=== PATIENT | female | born 1950 | race Caucasian/White ===

== ENCOUNTER → 2020-08-18 12:24 | Outpatient (BNVA) | payer MEDICARE, OTHER, SELFPAY | PROVIDERS: Family Provider Internal Medicine; PCP Nurse Practitioner; Visit Provider Nurse Practitioner | DX: Z01.812 Encounter for preprocedural laboratory examination (principal); Z20.822 Contact with and (suspected) exposure to COVID-19 | CPT/HCPCS: 87635 ==

== ENCOUNTER 2020-08-24 10:49 | Outpatient (CLI) | payer MEDICARE, OTHER, SELFPAY ==
--- NOTE | 2020-08-24 11:21 | PFTS_ITS ---
Date of Study:08/24/20 Date of Dictation: 08/24/2020 MECHANICS: Post bronchodilator forced vital capacity (FVC) is normal. Postbronchodilator forced expiratory volume in one second (FEV1) is normal. FEV1/FVC is reduced. There is significant response to bronchodilators. FLOW VOLUME LOOP: Sloping of expiratory limb suggestive of airway obstruction . LUNG VOLUMES: Total lung capacity (TLC) is increased. Residual volume (RV) is increased suggestive of mild air trapping 125%. DIFFUSING CAPACITY FOR CARBON MONOXIDE: normal. . INTERPRETATION: The pulmonary function tests are consistent with mild obstructive ventilatory defect with mild air trapping on lung volumes. There is significant response to bronchodilators. Gas transfer is normal. Correlate clinically. MTDD
== END 2020-08-24 10:50 | disposition home or self-care (01) ==
LOC: RT 10:55
PROVIDERS: PCP Nurse Practitioner; Visit Provider Nurse Practitioner
DX: J45.909 Unspecified asthma, uncomplicated (principal)
CPT/HCPCS: 94060; 94726; 94729; J7611

== ENCOUNTER 2021-03-10 15:26 | Emergency (ER) | payer MEDICARE, OTHER, SELFPAY ==
[2021-03-10 15:46] VITALS: BP 223/94; PULSE 94; RESP 18; TEMP 36.8; O2SAT 97; BMI 25.4
--- NOTE | 2021-03-10 16:36 | XRR_ITS ---
PROCEDURE INFORMATION: Exam: XR Chest Exam date and time: 03/10/2021 4:36 PM Age: 70 years old Clinical indication: Other: Dizziness; Additional info: HTN, dizziness TECHNIQUE: Imaging protocol: XR of the chest. Views: 1 view. COMPARISON: No relevant prior studies available. FINDINGS: Lungs: Unremarkable. No consolidation. Pleural spaces: Unremarkable. No pleural effusion. No pneumothorax. Heart/Mediastinum: Unremarkable. No cardiomegaly. Bones/joints: Unremarkable. XR/XR chest 1V portable [id number] IMPRESSION: No acute findings.
--- NOTE | 2021-03-10 18:10 | ECG_ITS ---
[facility] Test Date: 2021-03-10 Pat Name: Melina Briggs Department: Room: Gender: Female Recovery Coordinator: : 1950 Requested By: Jose Manuel Pitts Order Number: [id number] Casey MD: Jennifer Zabala M.D. Measurements Intervals [place] Rate: 94 P: 41 [place]: 112 QRS: 24 QRSD: 121 T: 56 QT: 346 QTc: 433 Interpretive Statements SINUS RHYTHM WITH SHORT [place] INTERVAL MODERATE INTRAVENTRICULAR CONDUCTION DELAY [110+ ms QRS DURATION] No previous ECG available for comparison Electronically Signed On 03-11-2021 20:05:23 POOL NURSE by Jennifer Zabala M.D. [id number] f
[2021-03-10 18:46] VITALS: BP 197/97; PULSE 109; RESP 22; O2SAT 97
[2021-03-10] MEDS: labetalol 5 mg/mL SDV 20mL 20 MG IVP (18:47)
[2021-03-10] MEDS: enalaprilat 1.25 mg/mL Inj IVP (18:50)
[2021-03-10 19:00] LABS: Basophils % 0.5 %; Eosinophils # 0.1 10^3/uL (0.0-0.8); Eosinophils % 1.1 %; Hematocrit 42.7 % (37.0-47.0); Hemoglobin 14.7 g/dL (11.5-15.3); Lymphocytes # 1.6 10^3/uL (0.8-4.8); Lymphocytes % 26.9 %; Mean Corpuscular HGB Conc 34.4 g/dL (30.0-36.0); Mean Corpuscular Hemoglobin 29.3 pg (28.0-34.0); Mean Corpuscular Volume 85.2 fl (81-99); Mean Platelet Volume 10.8 fL (7.4-10.4); Monocytes # 0.5 10^3/uL (0.2-0.9); Monocytes % 7.9 %; Neutrophils # 3.86 10^3/uL (1.8-7.7); Neutrophils % 63.3 %; Nucleated Red Blood Cells % 0 %; Platelet Count 237 10^3/cmm (130-400); Red Blood Count 5.01 10^6/uL (4.1-5.3); Red Cell Distribution Width 13.1 % (12.1-15.1); White Blood Count 6.1 10^3/uL (4.0-10.0)
[2021-03-10 19:05] LABS: Add Urine Microscopic? NO; Charge for UA Resulting for Rev
[2021-03-10 19:07] LABS: Bilirubin Urine Neg (Negative); Blood Urine Neg (Negative); Glucose Urine UA 2+ (Normal); Ketones Urine Negative (Negative); Leukocyte Esterase Urine Negative (Negative); Nitrate Urine Negative (Negative); Protein Urine Neg (Negative); Urine Appearance Clear (CLEAR); Urine Color Yellow (Yellow); Urobilinogen Urine Norm (Negative); pH Urine 7 (5-7)
--- NOTE | 2021-03-10 19:08 | CTR_ITS ---
PROCEDURE INFORMATION: Exam: CT Head Without Contrast Exam date and time: 03/10/2021 7:08 PM Age: 70 years old Clinical indication: Dizziness; Additional info: Dizzy TECHNIQUE: Imaging protocol: Computed tomography of the head without contrast. Radiation optimization: All CT scans at this facility use at least one of these dose optimization techniques: automated exposure control; mA and/or kV adjustment per patient size (includes targeted exams where dose is matched to clinical indication); or iterative reconstruction. COMPARISON: No relevant prior studies available. RADIATION DOSE METRICS: Total DLP (mGy-cm): 825.45 FINDINGS: Brain: Normal. No hemorrhage. Unremarkable white matter. No mass effect. Cerebral ventricles: No ventriculomegaly. Paranasal sinuses: Visualized sinuses are unremarkable. No fluid levels. Mastoid air cells: Visualized mastoid air cells are well aerated. Bones/joints: Unremarkable. No acute fracture. Soft tissues: Unremarkable. CT/CT head wo con* [id number] IMPRESSION: No acute intracranial abnormality.
[2021-03-10 19:13] LABS: Troponin(5th) Baseline 9 ng/L (0-10)
--- NOTE | 2021-03-10 19:14 | ED_ITS ---
HPI - Dizziness General: Chief Complaint: Dizziness Stated Complaint: HIGH BP HIGH BS Time Seen by Provider: 03/10/21 18:08 History of Present Illness: HPI Narrative: 70-year-old female with a history of asthma, hypertension, and type 2 diabetes. She became quite dizzy around 230 this afternoon at home. She was decorating her house for [facility]. She checked her pressure, and it was significantly elevated on her home monitor. She came to urgent care where it was very significantly elevated. She was told to come to the emergency room. She denies any chest pain. She denies headache. She denies significant vision changes. She states her dizziness have improved to some degree, but is still present. MD elicited complaint: dizziness and lightheadedness Onset (ago): hour(s) Timing: sudden onset Severity: moderate Description: lightheadedness and near-syncope History of similar symptoms: Yes Exacerbating factors: movement/ambulation Relieving factors: remaining still Associated symptoms: Reports cough (Mild, nonproductive), nausea and nasal congestion; Denies chest pain, chills, fevers/chills, headache(s), malaise or short of breath Associated neuro symptoms: Deny confusion, difficulty speaking, dysphagia, extremity weakness, facial numbness, facial weakness, numbness in extremities or visual changes Review of Systems Const: Denies: chills or malaise ENMT: Reports: nasal congestion Card: Denies: chest pain GI: Reports: nausea; Denies: dysphagia Neuro: Denies: headache(s), numbness in extremities or confusion [facility] ED PFSH: Medical History Diabetes Hypothyroid Surgical History History of hysterectomy Social History History of recent travel: No Physical Exam Const: COMMON NORMALS: no acute distress, patient oriented x3 and alert HENMT: COMMON NORMALS: normocephalic and atraumatic HEAD & SCALP: normocephalic and atraumatic Eye: COMMON NORMALS: Equal, round and reactive pupils present and EOMs intact bilaterally VISUAL KLEIN: No peripheral vision loss PUPIL: Yes Equal, round and reactive pupils present Chest: COMMONS NORMALS: normal inspection of the chest Resp: COMMON NORMALS: normal respiratory effort, No use of accessory muscles and clear to auscultation bilaterally AUSCULTATION: clear to auscultation bilaterally Cardio: COMMON NORMALS: regular rate and regular rhythm RATE: regular rate RHYTHM: regular rhythm GI: COMMON NORMALS: Normal to inspection, nondistended, normoactive bowel sounds present Neuro: COMMON NORMALS: patient oriented x3 SENSORIUM/ORIENTATION: Yes alert CRANIAL NERVES: Yes CN normal except as noted COORDINATION/BALANCE: [id number] test normal SPEECH: speech normal SENSORY EXAM: Yes extremities (Normal) MOTOR EXAM: Pronator motor function not present COORDINATION: [id number] test normal Course Vital Signs: Vital signs: Vital Signs Temperature 98.2 F 03/10/21 20:35 Pulse Rate 70 03/10/21 20:35 Respiratory Rate 16 03/10/21 20:35 Blood Pressure 140/86 03/10/21 20:35 Pulse Oximetry 98 03/10/21 20:35 MDM - Dizziness MDM Narrative: Medical decision making narrative: NIH stroke scale 0. CT of the head is negative. Her symptoms are resolved after improvement in her blood pressure. Her CBC and BMP were normal. Her liver enzymes are minimally elevated. She has no abdominal pain or discomfort, no history of hepatitis. She would like to go home. She took hydrochlorothiazide for hypertension before. We will give her a dose tonight, and write her prescription. She knows to return for any return of her symptoms at all. Lab Data: Labs: Lab Results 03/10/21 03/10/21 03/10/21 15:40 18:37 18:37 WBC 6.1 10^3/uL 10^3/ uL (4.0-10.0) RBC 5.01 10^6/uL 10^6 /uL (4.1-5.3) Hgb 14.7 g/dL g/dL (11.5-15.3) Hct 42.7 % % (37.0-47.0) MCV 85.2 fl fl (81-99) MCH 29.3 pg pg (28.0-34.0) MCHC 34.4 g/dL g/dL (30.0-36.0) RDW 13.1 % % (12.1-15.1) Plt Count 237 10^3/cmm 10^3 /cmm (130-400) MPV 10.8 fL H fL (7.4-10.4) Neut % (Auto) 63.3 % % Lymph % (Auto) 26.9 % % [place] % (Auto) 7.9 % % Eos % (Auto) 1.1 % % Baso % (Auto) 0.5 % % Neut # (Auto) 3.86 10^3/uL 10^3 /uL (1.8-7.7) Lymph # (Auto) 1.6 10^3/uL 10^3/ uL (0.8-4.8) [place] # (Auto) 0.5 10^3/uL 10^3/ uL (0.2-0.9) Eos # (Auto) 0.1 10^3/uL 10^3/ uL (0.0-0.8) Baso # (Auto) 0.0 10^3/uL 10^3/ uL (0.0-0.1) Nucleated RBC % (a uto) 0 % % Nucleated RBCs # 0.0 /100WBC /100W BC Sodium 136 mmol/L mmol/L (136-145) Potassium 4.3 mmol/L mmol/L (3.5-5.1) Chloride 98 mmol/L mmol/L (98-107) Carbon Dioxide 24 mmol/L mmol/L (22-29) Anion Gap 18.3 (5-19) BUN 10 mg/dL mg/dL (8-23) Creatinine 0.5 mg/dL mg/dL (0.5-0.9) GFR Calculation Not Reportable Glucose 152 mg/dL H mg/dL (65-115) Calculated Osmolal ity 284 mOsm/kg L mOs m/kg (285-295) Calcium 9.6 mg/dL mg/dL (8.5-10.5) Phosphorus 2.9 mg/dL mg/dL (2.5-4.5) Magnesium 2.0 mg/dL mg/dL (1.7-2.3) Total Bilirubin 0.4 mg/dL mg/dL (0.15-1.2) AST 61 U/L H U/L (0-32) ALT 109 U/L H U/L (0-33) Alkaline Phosphata se 110 IU/L H IU/L (35-105) Troponin T Baselin e Total Protein 7.2 g/dL g/dL (6.6-8.7) Albumin 4.9 g/dL g/dL (3.5-5.2) Globulin 2.3 g/dL g/dL (1.3-4.6) TSH 2.18 uIU/mL uIU/m L (0.27-4.20) Urine Color Yellow (Yellow) Urine Appearance Clear (CLEAR) Urine pH 7 (5-7) Ur Specific Gravit y 1.000 L (1.005-1.030) Urine Protein Neg (Negative) Urine Glucose (UA) 2+ H (Normal) Urine Ketones Negative (Negative) Urine Blood Neg (Negative) Urine Nitrate Negative (Negative) Urine Bilirubin Neg (Negative) Urine Urobilinogen Norm mg/dL mg/dL (Negative) Ur Leukocyte Renae ase Negative (Negative) 03/10/21 18:37 WBC RBC Hgb Hct MCV MCH MCHC RDW Plt Count MPV Neut % (Auto) Lymph % (Auto) [place] % (Auto) Eos % (Auto) Baso % (Auto) Neut # (Auto) Lymph # (Auto) [place] # (Auto) Eos # (Auto) Baso # (Auto) Nucleated RBC % (a uto) Nucleated RBCs # Sodium Potassium Chloride Carbon Dioxide Anion Gap BUN Creatinine GFR Calculation Glucose Calculated Osmolal ity Calcium Phosphorus Magnesium Total Bilirubin AST ALT Alkaline Phosphata se Troponin T Baselin e 9 ng/L ng/L (0-10) Total Protein Albumin Globulin TSH Urine Color Urine Appearance Urine pH Ur Specific Gravit y Urine Protein Urine Glucose (UA) Urine Ketones Urine Blood Urine Nitrate Urine Bilirubin Urine Urobilinogen Ur Leukocyte Renae ase Discharge Plan Discharge Patient Disposition: Home Clinical Impression: Hypertensive urgency Condition: Stable Prescriptions: New hydrochlorothiazide 25 mg tablet 25 mg PO DAILY Qty: 30 RF: 0 No Action Humulin N NPH Insulin KwikPen 100 unit/mL (3 mL) insulin pen 25 unit SUBCUT QAM RF: 0 metformin 500 mg tablet 500 mg PO BID RF: 0 levocetirizine [Allergy Relief (levocetirizin)] 5 mg tablet 5 mg PO DAILY RF: 0 Algal [place]-3 DHA 200 mg capsule PO RF: 0 levothyroxine 25 mcg tablet 25 mcg PO DAILY RF: 0 fluticasone propionate [Allergy Relief (fluticasone)] 50 mcg/actuation spray,suspension 1 spray intranasal DAILY PRNRF: 0 albuterol sulfate 1.25 mg/3 mL solution for nebulization 1.25 mg inhalation QID PRNRF: 0 meloxicam 15 mg tablet 15 mg PO DAILY RF: 0 Discharge Orders: Discharge ED (Routine); Ordered 03/10/21 Ordered By: Jose Manuel Jefferson Referrals: Shari Mane, ANALYTICAL ENGINEER [Primary Care Provider] - 1-3 days Patient Instructions: Hypertension (ED) Activity Restrictions/Additional Instructions: Return for return of dizziness, chest discomfort, mental status changes, weakness, syncope or passing out, any other concerning symptoms. Take your hydrochlorothiazide daily. Wait 24 hours to check your blood pressure, then check twice daily and report numbers to your physician. Coding Level of Care Code ED Ticket Sales Supervisor for [place] Fwd Exam Comprehensive
[2021-03-10 19:23] LABS: Alanine Aminotransferase 109 U/L (0-33); Albumin Level 4.9 g/dL (3.5-5.2); Alkaline Phosphatase 110 IU/L (35-105); Blood Urea Nitrogen 10 mg/dL (8-23); Calcium 9.6 mg/dL (8.5-10.5); Carbon Dioxide 24 mmol/L (22-29); Chloride 98 mmol/L (98-107); Globulin 2.3 g/dL (1.3-4.6); Glucose 152 mg/dL (65-115); Osmolality Calculated 284 mOsm/kg (285-295); Phosphorus 2.9 mg/dL (2.5-4.5); Sodium 136 mmol/L (136-145); Thyroid Stimulating Hormone 2.18 uIU/mL (0.27-4.20); Total Bilirubin 0.4 mg/dL (0.15-1.2); Total Protein 7.2 g/dL (6.6-8.7)
[2021-03-10 19:24] LABS: Anion Gap 18.3 (5-19); Aspartate Amino Transferase 61 U/L (0-32); Potassium 4.3 mmol/L (3.5-5.1)
[2021-03-10 19:30] VITALS: BP 148/102; PULSE 74; RESP 16; O2SAT 98
--- NOTE | 2021-03-10 19:36 | PC.NURSE ---
REPORT GIVEN TO SANCHEZ CARDENAS ASSUMED CARE.
--- NOTE | 2021-03-10 20:10 | ECG_ITS ---
[facility] Test Date: 2021-03-10 Pat Name: Melina Briggs Department: Room: Gender: Female Choir Singer: : 1950 Requested By: Jose Manuel Pitts Order Number: [id number] Casey MD: Jennifer Zabala M.D. Measurements Intervals [place] Rate: 69 P: 58 [place]: 138 QRS: 68 QRSD: 107 T: 83 QT: 390 QTc: 420 Interpretive Statements SINUS RHYTHM Compared to ECG 03/10/2021 18:38:58 Short [place] interval no longer present Intraventricular conduction delay no longer present Electronically Signed On 03-11-2021 20:16:28 SALES ACCOUNT REPRESENTATIVE by Jennifer Zabala M.D. [email or web address] hospitals conneaut medical [email or web address] Pharma/store/OM/[id number]
[2021-03-10] MEDS: hydroCHLOROthiazide 25 mg Tablet PO (20:28)
[2021-03-10 20:33] VITALS: BP 140/86; PULSE 74; RESP 16; TEMP 36.8; O2SAT 98
[2021-03-10 20:35] VITALS: BP 140/86; PULSE 70; RESP 16; TEMP 36.8; O2SAT 98
[2021-03-12 21:14] LABS: Glucose Point of Care 152 mg/dL (70-110)
== END 2021-03-10 20:38 | disposition home or self-care (01) ==
PROVIDERS: Nurse Practitioner Family; Emergency Provider Emergency Medicine; PCP Nurse Practitioner
DX: I16.0 Hypertensive urgency (principal); Z79.84 Long term (current) use of oral hypoglycemic drugs; Z79.4 Long term (current) use of insulin; E11.9 Type 2 diabetes mellitus without complications
CPT/HCPCS: 36416; 70450; 71045; 80053; 81003; 82962; 83735; 84100; 84443; 84484; 85025; 93005; 96374; 96375; 99284; J3490

== ENCOUNTER 2021-10-26 12:33 | Outpatient (CLI) | payer MEDICARE, OTHER, SELFPAY ==
--- NOTE | 2021-10-26 12:57 | XR_ITS ---
WS: [id number] Exam: XR chest 2V* [id number] Date/Time of Exam: 10/26/2021 1:09 PM Reason For Exam: CANDIDIASIS OF VULVA VAGINA Comparison 03/10/2021. The lungs are clear and fully expanded. Normal cardiomediastinal silhouette. No pleural effusions. [place] structures are intact. Mild DJD of the T-spine. XR/XR chest 2V* [id number] IMPRESSION: 1. No acute pulmonary process. No change.
== END 2021-10-26 12:34 | disposition home or self-care (01) ==
PROVIDERS: PCP Nurse Practitioner; Visit Provider Nurse Practitioner Family
DX: B37.3 Candidiasis of vulva and vagina (principal)
CPT/HCPCS: 71046

== ENCOUNTER 2022-07-15 09:13 | Outpatient (CLI) | payer MEDICARE, OTHER, SELFPAY ==
--- NOTE | 2022-07-15 09:24 | US_ITS ---
WS: [id number] RIGHT UPPER QUADRANT ULTRASOUND HISTORY: ABNORMAL LEVELS OF OTHER SERUM ENZYMES COMPARISON: None available. Liver: 13.7 cm in length. Normal liver with mild hepatic steatosis. Normal size liver with no bile du ct dilatation. Portal Vein: Normal hepatopetal flow with monophasic waveform. Gallbladder: Normally distended gallbladder with no stones or wall thickening. CBD: 0.6 cm Pancreas: Tail is obscured by bowel gas. The remaining pancreas is negative. Right kidney: 10.9 cm in length. Normal size and echogenicity. No hydronephrosis or mass. Aorta and IVC: Unremarkable abdominal aorta and IVC. No ascites. US/US abdomen limited [id number] IMPRESSION: 1. Normal gallbladder. 2. No bile duct dilatation. 3. Mild hepatic steatosis.
== END 2022-07-15 09:14 | disposition home or self-care (01) ==
LOC: RAD 09:17
PROVIDERS: PCP Nurse Practitioner Family; Visit Provider Nurse Practitioner Family
DX: R74.8 Abnormal levels of other serum enzymes (principal)
CPT/HCPCS: 76705

== ENCOUNTER → 2022-12-09 15:26 | Outpatient (BNVA) | payer MEDICARE, OTHER, SELFPAY | PROVIDERS: PCP Nurse Practitioner; Visit Provider Nurse Practitioner Family | DX: L57.0 Actinic keratosis (principal); L81.4 Other melanin hyperpigmentation; D22.5 Melanocytic nevi of trunk; L85.3 Xerosis cutis; L57.8 Other skin changes due to chronic exposure to nonionizing radiation; Z85.828 Personal history of other malignant neoplasm of skin; Z80.8 Family history of malignant neoplasm of other organs or systems | CPT/HCPCS: 17004; 99213 ==

== ENCOUNTER 2023-05-27 13:05 | Outpatient (CLI) | payer MEDICARE, OTHER, SELFPAY ==
--- NOTE | 2023-05-27 13:15 | XR_ITS ---
WS: [id number] SCREENING DEXA SCAN [facility] CLINICAL INFORMATION: ASYMPTOMATIC MENOPAUSAL STATE COMPARISON: None. FINDINGS: The L1-L4 bone mineral density measures 1.446 g/cm2. This corresponds to a T score score of 2.2 and Z score of 4.1. Left femoral neck bone mineral density measures 1.123 g/cm2. This corresponds to a T score of 0.9 and Z score of 2.7. Right femoral neck bone mineral density measures 1.119 g/cm2. This corresponds to a T score 0.9of and Z score of 2.6. Mean femoral neck bone mineral density measures 1.121 g/cm2. This corresponds to a T score of 0.9 and Z score of 2.7. IMPRESSION: Normal bone mineralization. Patient's FRAX calculated 10 year probability for major osteoporotic fracture is 16.8% and osteoporot ic hip fracture is 1.8%.
== END 2023-05-27 13:06 | disposition home or self-care (01) ==
LOC: RAD 13:07
PROVIDERS: PCP Nurse Practitioner; Visit Provider Nurse Practitioner Family
DX: Z78.0 Asymptomatic menopausal state (principal)
CPT/HCPCS: 77080

== ENCOUNTER → 2023-12-10 13:44 | Outpatient (BNVA) | payer MEDICARE, OTHER, SELFPAY | PROVIDERS: PCP Nurse Practitioner; Visit Provider Nurse Practitioner Family | DX: L57.8 Other skin changes due to chronic exposure to nonionizing radiation (principal); D22.5 Melanocytic nevi of trunk; L81.4 Other melanin hyperpigmentation; L57.0 Actinic keratosis | CPT/HCPCS: 17000; 99213 ==

== ENCOUNTER → 2024-03-25 11:14 | Outpatient (BNVA) | payer MEDICARE, OTHER, SELFPAY | PROVIDERS: PCP Nurse Practitioner; Visit Provider Nurse Practitioner Family | DX: L57.8 Other skin changes due to chronic exposure to nonionizing radiation (principal); D22.4 Melanocytic nevi of scalp and neck; L81.4 Other melanin hyperpigmentation; L57.0 Actinic keratosis; L82.0 Inflamed seborrheic keratosis; Z78.9 Other specified health status | CPT/HCPCS: 17004; 17110; 99213 ==

== ENCOUNTER → 2024-06-24 14:49 | Outpatient (BNVA) | payer MEDICARE, OTHER, SELFPAY | PROVIDERS: PCP Nurse Practitioner; Visit Provider Nurse Practitioner Family | DX: L57.8 Other skin changes due to chronic exposure to nonionizing radiation (principal); L81.4 Other melanin hyperpigmentation; D18.01 Hemangioma of skin and subcutaneous tissue; S90.121A Contusion of right lesser toe(s) without damage to nail, initial encounter; X58.XXXA Exposure to other specified factors, initial encounter; Z08 Encounter for follow-up examination after completed treatment for malignant neoplasm; Z85.828 Personal history of other malignant neoplasm of skin; L57.0 Actinic keratosis | CPT/HCPCS: 17004; 99213 ==

== ENCOUNTER → 2024-09-06 15:03 | Outpatient (BNVA) | payer MEDICARE, OTHER, SELFPAY | PROVIDERS: PCP Nurse Practitioner; Visit Provider Nurse Practitioner Family | DX: L57.8 Other skin changes due to chronic exposure to nonionizing radiation (principal); L81.4 Other melanin hyperpigmentation; D22.5 Melanocytic nevi of trunk; Z08 Encounter for follow-up examination after completed treatment for malignant neoplasm; Z85.828 Personal history of other malignant neoplasm of skin; L82.0 Inflamed seborrheic keratosis; R20.8 Other disturbances of skin sensation; Z78.9 Other specified health status; L29.89 Other pruritus; L57.0 Actinic keratosis | CPT/HCPCS: 17000; 17110; 99213 ==

== ENCOUNTER → 2025-01-03 15:01 | Outpatient (BNVA) | payer OTHER, MEDICARE, SELFPAY | PROVIDERS: PCP Nurse Practitioner; Visit Provider Nurse Practitioner Family | DX: L81.4 Other melanin hyperpigmentation (principal); L57.8 Other skin changes due to chronic exposure to nonionizing radiation; D22.5 Melanocytic nevi of trunk; L82.1 Other seborrheic keratosis; L57.0 Actinic keratosis; L82.0 Inflamed seborrheic keratosis; Z78.9 Other specified health status; R20.8 Other disturbances of skin sensation; L29.89 Other pruritus; L53.8 Other specified erythematous conditions; R58 Hemorrhage, not elsewhere classified | CPT/HCPCS: 17004; 17110; 99213 ==

== ENCOUNTER → 2025-03-30 15:30 | Outpatient (BNVA) | payer MEDICARE, OTHER, SELFPAY | PROVIDERS: PCP Nurse Practitioner; Visit Provider Nurse Practitioner Family | DX: L57.0 Actinic keratosis (principal); L81.4 Other melanin hyperpigmentation; L57.8 Other skin changes due to chronic exposure to nonionizing radiation | CPT/HCPCS: 17000; 99213 ==